=== PATIENT | female | born 1975 | race Caucasian/White ===

== ENCOUNTER 2016-08-20 14:39 | Emergency (ER) | payer MEDICAID ==
[~2016-08-20] VITALS: Wt 100.0 kg
[~2016-08-20 14:39] MED LIST: PREN1TAB74 PO
[2016-08-20] MEDS ORDERED: IBUPROFEN 800 MG TAB PO ONE (16:30)
[2016-08-20] MEDS ORDERED: NAPR-688 PO (17:27)
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
[2016-08-20 17:35] VITALS: BP 122/76; PULSE 86; RESP 16; TEMP 98.1
== END 2016-08-20 17:35 | disposition home or self-care (01) ==
LOC: E/R 14:39
DX: S16.1XXA Strain of muscle, fascia and tendon at neck level, initial encounter (principal); S39.012A Strain of muscle, fascia and tendon of lower back, initial encounter; F17.210 Nicotine dependence, cigarettes, uncomplicated; V49.49XA Driver injured in collision with other motor vehicles in traffic accident, initial encounter
CPT/HCPCS: 99283

== ENCOUNTER 2018-04-22 16:07 | Emergency (ER) | END 2018-04-22 18:58 | disposition home or self-care (01) ==

== ENCOUNTER 2019-04-09 16:20 | Emergency (ER) | payer SELFPAY ==
[~2019-04-09] VITALS: Wt 96.3 kg
[~2019-04-09 16:20] MED LIST changes: +IBUP800T48 PO; +METF-849 PO; +NAPR-688 PO; -PREN1TAB74 PO
[2019-04-09 16:30] VITALS: BP 146/70; PULSE 93; RESP 18
[2019-04-09] MEDS ORDERED: IBUPROFEN 800 MG TAB PO ONE (17:00)
== END 2019-04-09 18:43 | disposition home or self-care (01) ==
LOC: FTE 16:20
DX: S61.011A Laceration without foreign body of right thumb without damage to nail, initial encounter (principal); E11.9 Type 2 diabetes mellitus without complications; W26.8XXA Contact with other sharp object(s), not elsewhere classified, initial encounter; Y92.9 Unspecified place or not applicable; Z79.84 Long term (current) use of oral hypoglycemic drugs

== ENCOUNTER 2019-04-15 14:09 | Emergency (ER) | payer SELFPAY ==
[~2019-04-15] VITALS: Ht 152.4 cm; Wt 98.0 kg
[2019-04-15 14:18] VITALS: BP 156/78; PULSE 108; RESP 16; Ht 152.4 cm; Wt 98.0 kg
== END 2019-04-15 15:12 | disposition home or self-care (01) ==
LOC: E/R 14:09
DX: Z48.02 Encounter for removal of sutures (principal); E11.9 Type 2 diabetes mellitus without complications; Z87.891 Personal history of nicotine dependence; Z79.84 Long term (current) use of oral hypoglycemic drugs
CPT/HCPCS: 99281